=== PATIENT | male | born 1990 | race Caucasian/White ===

== ENCOUNTER 2019-01-18 03:06 | Inpatient (IN) | payer OTHER ==
[~2019-01-18] VITALS: Ht 188 cm; Wt 89.8 kg
== END 2019-01-20 19:33 | disposition home or self-care (01) | DRG 392 ==
LOC: ER 03:06 → SEC-K 09:27 → MEDJ 09:27
PROVIDERS: ADMIT Internal Medicine
DX: K52.89 Other specified noninfective gastroenteritis and colitis (principal); N17.8 Other acute kidney failure

== ENCOUNTER 2020-07-27 12:17 | Emergency (ER) | payer OTHER ==
[~2020-07-27] VITALS: Ht 188 cm; Wt 87.5 kg
[2020-07-27] MEDS ORDERED: INTESTINEX680 M1 PO (13:37)
[2020-07-27] MEDS ORDERED: AMOX-CLAV 875-1 EACH PO (13:37)
== END 2020-07-27 13:45 ==
LOC: ER 12:17
DX: S61.250A Open bite of right index finger without damage to nail, initial encounter (principal); W54.0XXA Bitten by dog, initial encounter; Y93.89 Activity, other specified; Y92.098 Other place in other non-institutional residence as the place of occurrence of the external cause; Y99.8 Other external cause status

== ENCOUNTER 2022-10-24 11:00 | Outpatient (CLI) | payer OTHER ==
[~2022-10-24 11:00] MED LIST: AMOX-CLAV 875-1 EACH PO; INTESTINEX680 M1 PO
== END 2022-10-24 11:05 | disposition home or self-care (01) ==
LOC: RAD 11:00
DX: M25.511 Pain in right shoulder (principal)

== ENCOUNTER 2022-12-17 11:56 | Outpatient (CLI) | payer OTHER | END 2022-12-17 12:09 | disposition home or self-care (01) | LOC: TOM 11:56 | PROVIDERS: ATTEND Orthopaedic Surgery | DX: M24.011 Loose body in right shoulder (principal) ==